=== PATIENT | male | born 1960 | race Caucasian/White ===

== ENCOUNTER 2022-06-26 06:02 | Day surgery (SDC) | payer OTHER ==
[2022-06-26] VITALS (230 sets, daily range): BP systolic 77–178; BP diastolic 39–146
[~2022-06-26] VITALS: Ht 188 cm; Wt 105.0 kg
--- NOTE | 2022-06-26 07:05 | NUR ---
Patient arrived to the ANR suite, identification and demographics confirmed. Patient to room 10, AAO, ambulatory, vitals obtained, ID/allergy/fall bands placed, changed into hospital gown, ETHAN hose, and non-slip socks. Procedure and timeline explained for treatment and discharge. All questions answered and the patient presents no concerns at this time.
--- NOTE | 2022-06-26 07:30 | NUR ---
Dr. Blum telephoned with patient intake information including usage, dose, last dose/time taken and initial vital signs. Patient history and allergies reviewed with MD. Orders received for 15 mg PO Valium and 0.3 mg PO Clonidine now. Will reassess per protocol in 1.5 hours and update MD withassessment and vitals.
--- NOTE | 2022-06-26 07:35 | NUR ---
Patient medicated per MD orders. In addition to Clonidine and Valium, patient received 1000 mcg B12 PO, 20 mg Pepcid PO, and Scopolamine TD patch. Medication indication and education provided prior to adminstration.
--- NOTE | 2022-06-26 07:50 | NUR ---
Patient resting comfortably in bed. Easily aroused, maintains focus, and drifts back to sleep. No signs of active withdrawal or distress noted at this time. Continuous SPO2, rhythm, and respiratory monitoring initiated. IVF @ 250 mL/HR, room air, VSS.
[2022-06-26 08:06] LABS: BASO% 0.7 % (0-3); EOS% 4.7 % (0-8); HEMATOCRIT 40.1 % (39.0-50.0); HEMOGLOBIN 13.5 g/dl (14.0-18.0); IMMATURE GRANULOCYTES 0.4 % (0.0-5.0); LYMPH% 26.8 % (15-41); MEAN CELL VOLUME 92.2 fL CALC (80.0-100.0); MEAN CORPUSCULAR HGB CONC 33.7 g/dL CAL (32.0-36.0); MONO% 14.4 % (2-13); NEUT# 2.95 thou/uL (1.82-7.42); RED BLOOD COUNT 4.35 mill/uL (4.70-6.10); RED CELL DISTRI WIDTH 12.1 % (11.5-15.5)
[2022-06-26 08:13] LABS: BUN 16 mg/dL (9-20); CREATININE 1.1 mg/dL (0.7-1.3); GFR FOR AFR.AMER. > 60 ML/MIN (>=60 (CALC))
[2022-06-26 08:14] LABS: ALBUMIN 4.4 g/dL (3.2-5.0); ALKALINE PHOSPHATASE 73 u/l (38-126); ANION GAP 11 (6-22 (CALC)); BILIRUBIN, TOTAL 0.7 mg/dL (0.2-1.3); BUN/CREATININE RATIO 15 (12-20 (CALC)); CARBON DIOXIDE 32 mmol/l (22-30); CHLORIDE 97 mmol/l (95-108); GFR OTHER RACES > 60 ML/MIN (>=60 (CALC)); POTASSIUM 4.2 mmol/l (3.5-5.1); SGOT/AST 37 u/l (17-59); SODIUM 136 mmol/l (137-146); TOTAL PROTEIN 7.1 g/dL (6.3-8.2)
--- NOTE | 2022-06-26 08:35 | NUR ---
Patient resting comfortably in bed. Easily aroused, maintains focus, and drifts back to sleep. No signs of withdrawal or distress noted at this time.
--- NOTE | 2022-06-26 09:20 | NUR ---
Dr. Blum telephoned with reassessment and new vital signs. Reviewed initial Valium and Clonidine dose with MD. Orders received for 10 mg PO Valium and 0.1 mg PO Clonidine now. Will reassess per protocol in 1.5 hours and update MD with assessment and vitals.
--- NOTE | 2022-06-26 09:40 | NUR ---
Patient resting comfortably in bed. Easily aroused, maintains focus, and drifts back to sleep. No signs of withdrawal or distress noted at this time.
--- NOTE | 2022-06-26 09:50 | NUR ---
Patient medicated per MD orders.
--- NOTE | 2022-06-26 10:30 | NUR ---
Patient resting comfortably in bed. Easily aroused, maintains focus, and drifts back to sleep. No signs of withdrawal or distress noted at this time.
--- NOTE | 2022-06-26 11:05 | NUR ---
Nebulized treatment and Protonix administered per orders. Patient easily aroused, follows commands, appropriate conversation, reports no distress or withdrawal symtoms. Induction to begin in approximately 15 minutes.
--- NOTE | 2022-06-26 11:20 | NUR ---
Induction Note Patient to ANR procedure room 10. Time out performed at 1120, patient placed on planning lead, Odalis hugger, and bilateral wrist restraints were applied for ET tube protection. Versed 5mg given IV push at 1122, tourniquet applied to RIGHT arm, lidocaine 100 mg IVP given at 1124, followed by Rocuronium 10mg IVP at 1124 and held for 45 seconds. Propofol 200 mg IVP given at 1125. Succinylcholine 100 mg IVP at 1125. Smooth intubation with 7.5 ETT @ 23L at 1128. Positive CO2. Positiveauscultation for air exchange. Patient placed on ventilator for spontaneous ventilation. Placed on Propofol IV drip at 1128. OG inserted at 1135. Positive air on auscultation. Positive gastric content. Stomach washed at this time.
--- NOTE | 2022-06-26 11:40 | NUR ---
OG close note Stomach washed at this time. Naltrexone 50 mg with Clonidine 0.1 mg via OG tube. OG will be clamped for 45 minutes.
--- NOTE | 2022-06-26 12:25 | NUR ---
OG open note OG open at this time. Gastric content draining into drainage bag. OG to drain for 45 minutes. Propofol will be titrated down based on patient.
--- NOTE | 2022-06-26 13:20 | NUR ---
OG close note Stomach washed at this time. Naltrexone 50 mg with Clonidine 0.3 mg via OG tube. OG will be clamped for 45 minutes.
--- NOTE | 2022-06-26 14:05 | NUR ---
HYDRALAZINE 10MG IVP GIVEN FOR PERSISTENT HYPERTENSION.
[2022-06-26] MEDS ORDERED: NALTREXONE50 MG PO (14:50)
[2022-06-26] MEDS ORDERED: KLONOPIN2 MG PO (14:50)
[2022-06-26] MEDS ORDERED: CLONIDINE0.1 MG PO (14:50)
--- NOTE | 2022-06-26 15:00 | NUR ---
OG close note Stomach washed at this time. Naltrexone 50 mg with Clonidine 0.3 mg via OG tube. OG will be clamped for 45 minutes.
--- NOTE | 2022-06-26 18:10 | NUR ---
Extubation note Closing medications given Benadryl 50mg IV push, Decadron 10mg IV push,Magnesium 4 grams IV, Zofran 8mg IV push, Octreotide 100mcg SC. Stomach washed out prior to extubation. Suctioned gastric content. OG removed. Patient extubated. Propofol Discontinued. Wrist restraints removed. Odalis hugger Removed. See ANR Moderate sedate recovery record for further notes and assessment.,
--- NOTE | 2022-06-26 19:05 | NUR ---
Patient to room 287 in no acute distress. Transfer of care to Medical/Surgical ANR RN at bedside. 2L NC placed per orders, IVF to continue at 100ml/hr. VSS. Patient resting comfortably, no adventitious breath sounds appreciated. Bed alarm set. See chart/EMAR for procedural details and assessments. Handoff of care at the time of this note.
--- NOTE | 2022-06-26 19:58 | NUR ---
PT ARRIVED TO [facility] @ 1905 VIA BED, ACCOMPANIED BY JOHNNA GARNER. PT RESTING ON BED COMFORTABLY. VS AND ASSESSMENT COMPLETED. EVEN AND UNLABORED RESPIRATIONS; CLEAR LUNG SOUNDS UPON AUSCULTATION. O2 @2L VIA NC IN PLACE. IV SITES HEALTHY AND PATENT, INFUSING FLUIDS PER ORDER. ACTIVE BOWEL SOUNDS X4 QUADRANTS. BED ALARM ACTIVE AND SAFETY PRECAUTIONS IN PLACE. CALL LIGHT IN REACH.
--- NOTE | 2022-06-27 | NUR ---
PT ON BED UNABLE TO FIND A COMFORTABLE POSITION, MILD AGITATION; ADMINISTERED ATIVAN 1ML PER EMAR. OFFERED ORAL FLUIDS, PT DRINKING WITHOUT SWALLOWING PROBLEMS. BED ALARM ACTIVE AND SAFETY PRECAUTIONS IN PLACE. CALL LIGHT IN REACH.
--- NOTE | 2022-06-27 02:14 | NUR ---
PT C/O NAUSEA; ADMINISTERED ZOFRAN PER EMAR. BED ALARM ACTIVE AND SAFETY PRECAUTIONS IN PLACE. CALL LIGHT IN REACH.
[2022-06-27 03:15] VITALS: BP 100/52
--- NOTE | 2022-06-27 04:00 | NUR ---
BED ALARM WENT ON; PT TRYING TO GET OUT OF BED. PT ASSISTED TO BATHROOM, PT BACK IN BED. NO DISTRESS OR PAIN NOTED. IV SITES HEALTHY AND PATENT. BED ALARM ACTIVE AND SAFETY PRECAUTIONS IN PLACE. CALL LIGHT IN REACH.
[2022-06-27 05:36] LABS: HEMATOCRIT 39.7 % (39.0-50.0); HEMOGLOBIN 13.4 g/dl (14.0-18.0); IMMATURE GRANULOCYTES 0.5 % (0.0-5.0); LYMPH% 3.4 % (15-41); MEAN CELL VOLUME 91.5 fL CALC (80.0-100.0); MEAN CORPUSCULAR HGB 30.9 pG CALC (26.0-32.0); MEAN CORPUSCULAR HGB CONC 33.8 g/dL CAL (32.0-36.0); NEUT# 17.48 thou/uL (1.82-7.42); RED BLOOD COUNT 4.34 mill/uL (4.70-6.10); RED CELL DISTRI WIDTH 11.7 % (11.5-15.5)
[2022-06-27 05:42] LABS: ALBUMIN 3.8 g/dL (3.2-5.0); ALKALINE PHOSPHATASE 71 u/l (38-126); BUN 17 mg/dL (9-20); BUN/CREATININE RATIO 14 (12-20 (CALC)); CHLORIDE 103 mmol/l (95-108); CREATININE 1.2 mg/dL (0.7-1.3); GFR FOR AFR.AMER. > 60 ML/MIN (>=60 (CALC)); GFR OTHER RACES > 60 ML/MIN (>=60 (CALC)); MAGNESIUM 2.3 mg/dL (1.6-2.3); SGOT/AST 53 u/l (17-59); SODIUM 133 mmol/l (137-146); TOTAL PROTEIN 7.1 g/dL (6.3-8.2)
[2022-06-27 05:48] LABS: ANION GAP 13 (6-22 (CALC)); BILIRUBIN, TOTAL 1.1 mg/dL (0.2-1.3); CARBON DIOXIDE 22 mmol/l (22-30); POTASSIUM 5.1 mmol/l (3.5-5.1)
[2022-06-27 06:19] LABS: NEUT% 92.1 % (42-76)
--- NOTE | 2022-06-27 06:24 | NUR ---
PT REQUESTED TO GET A SHOWER, WHILE DIRECTOR OF FRONT OFFICE GETTING STUFF READY; PT PULLED IV OUT: #2OG TO RT AC, CATHETER INTACT.
--- NOTE | 2022-06-27 08:00 | NUR ---
GOT REPORT FROM RESOURCING CONSULTANT NURSE. PATIENT ASSESSED, AOX2 PATIENT IS DISORIENTATED TO TIME. MORNING MEDS GIVEN, PATIENT STILL HAS IV, ONE IN THE RAC. FALL PRECAUTIONS AT IN PLACE. CALL LIGHT WITH IN REACH OF PATIENT. ADVISED TO CALL IF NEEDING ANYTHING. PATIENT VERBALIZED UNDERSTANDING.
[2022-06-27 09:16] VITALS: BP 100/52
--- NOTE | 2022-06-27 10:30 | NUR ---
DR RAMOS AT BEDSIDE WITH PATIENT ASSESSING, EDUCATING, AND ANSWERING QUESTIONS WITH THE PATIENT.
--- NOTE | 2022-06-27 11:40 | NUR ---
PATIENT CALLED REQUESTING A SET UP WITH CPAP MACHINE. RESPIRATORY CALLED AND SET UP PATIENT'S CPAP MACHINE FOR HIM.
--- NOTE | 2022-06-27 12:25 | NUR ---
PATIENT IS BECOING VERY ANXIOUS. STATES THAT HE NEEDS SOMETHING FOR HIS ANXIETY. CALLED DR RAMOS, PER DR RAMOS OK TO GIVE THE 8AM PRN KLONIPIN. PATIENT AGREED. MEDICATION GIVEN.
--- NOTE | 2022-06-27 16:35 | NUR ---
Discharge instructions given. Patient verbalizes understanding of same. Discharged in stable condition via Wheelchair to Home with family. All belongings sent with pt.
== END 2022-06-27 16:35 | disposition home or self-care (01) | DRG 897 ==
LOC: ANR 06:02 → MS2 06:02 → ANR 10:00
PROVIDERS: ATTEND Anesthesiology Critical Care Medicine
DX: F11.20 Opioid dependence, uncomplicated (principal)
CPT/HCPCS: J0131; J2060; J2354; J3475